=== PATIENT | female | born 1975 | race Hispanic/Latino ===

== ENCOUNTER 2017-07-29 12:00 | Emergency (ER) | payer OTHER ==
[2017-07-29 12:16] VITALS: BP 149/93
[2017-07-29 17:27] LABS: Bilirubin,Urine NEG (Negative); Blood,Urine NEG (Negative); Color,Urine Straw (Yellow); Nitrite,Urine NEG (Negative); Protein,Urine <15 mg/dL mg/dL (Negative); Urobilinogen,Urine < 2.0 mg/dL (<2.0)
[2017-07-29 17:35] LABS: HCG Qualitative,Urine Negative (Negative)
--- NOTE | 2017-07-29 17:35 | Emergency Department Report ---
ED Female HPI - General Chief complaint: Urogenital-Female Stated complaint: UROGENTELIA-FEMALE Time Seen by Provider: 07/29/17 16:41 Source: patient Mode of arrival: Ambulatory Limitations: No Limitations - History of Present Illness Initial comments: This is a 41 y.o. female with frequency, discharge with odor, and urgency. She [facility] ago and treated for UTI with macrobid 100 mg po bid x 5 days. Symptoms got better for a few days then returned 3 days ago. Admits to unprotected intercourse. Treated months ago for trichomoniasis at [facility]. Denies low back pain and abdominal pain. MD Complaint: vaginal discharge, possible STD -: days(s) (3) Location: labia Radiation: non-radiating Severity: mild Severity scale (0 -10): 0 Consistency: constant Improves with: none Worsens with: intercourse (foul odor during intercourse) Associated Symptoms: vaginal discharge (thick white discharge). denies: vaginal bleeding, abdominal pain, nausea/vomiting, fever/chills, headaches, loss of appetite, dysuria, hematuria, rash, seizure, shortness of breath, syncope, weakness - Related Data Sexually active: Yes Previous Rx's Medication Instructions Recorded Last Taken Type Ibuprofen [Motrin] 600 mg PO Q8H PRN #30 tablet 08/26/14 Unknown Rx Cephalexin [Keflex] 500 mg PO Q6H #40 capsule 08/13/15 Unknown Rx Loratadine [Claritin] 10 mg PO DAILY #30 tablet 08/13/15 Unknown Rx Promethazine /Codeine 5 ml PO Q6H PRN #150 ml 08/13/15 Unknown Rx [Phenergan/Codeine 6.25-10 mg/5 ml] predniSONE [Deltasone] 20 mg PO QDAY #5 tab 08/13/15 Unknown Rx ALBUTEROL Inhaler [ProAir HFA 2 puff IH QID PRN #1 inhalation 08/26/15 Unknown Rx Inhaler] Benzonatate [Tessalon Perles] 100 mg PO Q8HR #20 capsule 08/26/15 Unknown Rx Prednisone [predniSONE 10 mg 10 mg PO .TAPER #1 tab.ds.pk 08/26/15 Unknown Rx (6-Day Pack, 21 Tabs)] metroNIDAZOLE [Metronidazole] 500 mg PO BID 7 Days #14 tablet 07/29/17 Unknown Rx Allergies Allergy/AdvReac Type Severity Reaction Status Date / Time sulfamethoxazole AdvReac Itching Verified 11/07/13 14:16 [From Bactrim] trimethoprim [From Bactrim] AdvReac Itching Verified 11/07/13 14:16 ED Review of Systems ROS: Stated complaint: UROGENTELIA-FEMALE Other details as noted in HPI Constitutional: denies: chills, fever Respiratory: denies: cough, shortness of breath, wheezing Cardiovascular: denies: chest pain, palpitations Gastrointestinal: denies: abdominal pain, nausea, diarrhea Genitourinary: urgency, frequency, discharge. denies: dysuria Musculoskeletal: denies: back pain, joint swelling, arthralgia Neurological: denies: headache, weakness, paresthesias ED Past Medical Hx - Past Medical History Previous Medical History?: Yes Additional medical history: Frequent UTI, Heavy vaginal bleeding during menses, Bartholin cyst - Surgical History Past Surgical History?: Yes Additional Surgical History: tubal ligation, Tonsil removed - Social History Smoking Status: Never Smoker Substance Use Type: Prescribed - Medications Home Medications: Home Medications Medication Instructions Recorded Confirmed Last Taken Type Ibuprofen [Motrin] 600 mg PO Q8H PRN #30 tablet 08/26/14 Unknown Rx Cephalexin [Keflex] 500 mg PO Q6H #40 capsule 08/13/15 Unknown Rx Loratadine [Claritin] 10 mg PO DAILY #30 tablet 08/13/15 Unknown Rx Promethazine /Codeine 5 ml PO Q6H PRN #150 ml 08/13/15 Unknown Rx [Phenergan/Codeine 6.25-10 mg/5 ml] predniSONE [Deltasone] 20 mg PO QDAY #5 tab 08/13/15 Unknown Rx ALBUTEROL Inhaler [ProAir HFA 2 puff IH QID PRN #1 inhalation 08/26/15 Unknown Rx Inhaler] Benzonatate [Tessalon Perles] 100 mg PO Q8HR #20 capsule 08/26/15 Unknown Rx Prednisone [predniSONE 10 mg 10 mg PO .TAPER #1 tab.ds.pk 08/26/15 Unknown Rx (6-Day Pack, 21 Tabs)] metroNIDAZOLE [Metronidazole] 500 mg PO BID 7 Days #14 tablet 07/29/17 Unknown Rx ED Physical Exam - General Limitations: No Limitations General appearance: alert, in no apparent distress - Respiratory Respiratory exam: Present: normal lung sounds bilaterally. Absent: respiratory distress - Cardiovascular Cardiovascular Exam: Present: regular rate, normal rhythm. Absent: systolic murmur, diastolic murmur, rubs, gallop - GI/Abdominal GI/Abdominal exam: Present: soft, normal bowel sounds - Back Exam Back exam: Present: normal inspection - Neurological Exam Neurological exam: Present: alert, oriented X3 ED Course Vital Signs 07/29/17 12:11 Temperature 97.9 F Pulse Rate 109 H Respiratory 20 Rate Blood Pressure 149/93 O2 Sat by Pulse 97 Oximetry Critical care attestation.: If time is entered above; I have spent that time in minutes in the direct care of this critically ill patient, excluding procedure time. ED Disposition Clinical Impression: Exposure to STD Disposition: DC-01 TO HOME OR SELFCARE Is pt being admited?: No Does the pt Need Aspirin: No Condition: Stable Instructions: Sexually Transmitted Diseases (ED), Safe Sex (ED) Additional Instructions: Follow up with health department for full screening. Complete prescribed medication as ordered. Prescriptions: metroNIDAZOLE [Metronidazole] 500 mg PO BID 7 Days #14 tablet Referrals: PRIMARY CARE, [Primary Care Provider] - 3-5 Days [facility] [Outside] - 3-5 Days [facility] [Outside] - 3-5 Days [facility] [Outside] - 3-5 Days Forms: Work/School Release Form(ED) Time of Disposition: 17:58 Print Language: BERMUDIAN
[2017-07-29] MEDS ORDERED: ROCEPHIN IM ONE (17:42)
[2017-07-29] MEDS ORDERED: XYLOCAINE 1% MPF 5 mL INFILTRATI ONE (17:42)
[2017-07-29] MEDS ORDERED: ZITHROMAX PO ONE (17:42)
== END 2017-07-29 18:16 | disposition home or self-care (01) ==
LOC: ED 12:00
DX: Z20.2 Contact with and (suspected) exposure to infections with a predominantly sexual mode of transmission (principal); Z88.1 Allergy status to other antibiotic agents; Z88.2 Allergy status to sulfonamides
CPT/HCPCS: 81001; 81025; 96372; 99283; J0696

== ENCOUNTER 2018-11-30 15:40 | Emergency (ER) | payer OTHER ==
--- NOTE | 2018-11-30 16:09 | Emergency Department Report ---
Blank Doc - Documentation Documentation: This is a 42-year-old female that presents with n/v and cough x2 weeks. This initial assessment/diagnostic orders/clinical plan/treatment(s) is/are subject to change based on patient's health status, clinical progression and re- assessment by fellow clinical providers in the ED. Further treatment and workup at subsequent clinical providers discretion. Patient/guardians urged not to elope from the ED as their condition may be serious if not clinically assessed and managed. Initial orders include: 1- Patient sent to [facility] for further evaluation and treatment 2- labs 3- CXR/Abd xray
[2018-11-30 18:02] LABS: Basophils % (Auto) 0.4 % (0.0-1.8); Eosinophils # (Auto) 0.1 K/mm3 (0.0-0.4); Hematocrit 39.8 % (30.3-42.9); Hemoglobin 13.4 gm/dl (10.1-14.3); Lymphocytes # (Auto) 3.7 K/mm3 (1.2-5.4); Lymphocytes % (Auto) 39.5 % (13.4-35.0); Mean Corpuscular HGB Conc 34 % (30-34); Mean Corpuscular Volume 85 fl (79-97); Monocytes # (Auto) 0.7 K/mm3 (0.0-0.8); Monocytes % (Auto) 7.9 % (0.0-7.3); Platelet Count 307 K/mm3 (140-440); Red Blood Count 4.67 M/mm3 (3.65-5.03); Red Cell Distribution Width 13.8 % (13.2-15.2)
--- NOTE | 2018-11-30 18:09 | XRay Report ---
PROCEDURE: XR ABD SERIES W CXR 1V TECHNIQUE: Abdominal series complete, including supine and upright AP views of the abdomen and front al chest. HISTORY: n/v with cough COMPARISONS: None . FINDINGS: Heart: Normal. Mediastinum/Vessels: Normal. Lungs/Pleural space: Normal. Bowel gas pattern: Bowel gas pattern is nonobstructive. There are air-fluid levels in the colon. . Calcifications: None . Bony structures: No acute osseous abnormality . Other: No free intraperitoneal air . IMPRESSION: Nonobstructive bowel gas pattern. This document is electronically signed by Maxine Jorgensen MD., Nov 30 2018 06:07:11 PM ET
[2018-11-30] MEDS ORDERED: ALUM-MAG HYDROX-SIMETH 200-200-20MG/5ML PO ONE (18:12)
[2018-11-30] MEDS ORDERED: LIDOCAINE VISCOUS 2% PO ONE (18:12)
[2018-11-30] MEDS ORDERED: BENTYL PO ONE (18:16)
[2018-11-30 18:26] LABS: Alanine Aminotransferase 31 units/L (7-56); Albumin 4.3 g/dL (3.9-5); BUN/Creatinine Ratio 25; Blood Urea Nitrogen 15 mg/dL (7-17); Calcium 9.3 mg/dL (8.4-10.2); Hemolysis Index 15
[2018-11-30 18:31] LABS: Bilirubin,Direct < 0.2 mg/dL (0-0.2)
--- NOTE | 2018-11-30 18:43 | Emergency Department Report ---
ED General Adult HPI - General Chief complaint: Nausea/Vomiting/Diarrhea Stated complaint: SICK Time Seen by Provider: 11/30/18 16:08 Source: patient Mode of arrival: Ambulatory Limitations: No Limitations - History of Present Illness Initial comments: Pt is a 42 yo female who presents to the ED with c/o N/V/D that began 1 week and a half ago. She states she also has a cough with mucus production and fatigue. The patient states she is also having urinary urgency. She denies any fever, dysuria, hematochezia, abd pain, hematemesis, melena, or any other sx. She states that her nausea and cough is worse with laying flat. She denies any PMHx or any daily meds. She states she is allergic to bactrim. The patient is a non smoker, non drinker, and denies drug use. Severity scale (0 -10): 0 - Related Data Previous Rx's Medication Instructions Recorded Last Taken Type Ibuprofen [Motrin 600 MG tab] 600 mg PO Q8H PRN #30 tablet 08/26/14 Unknown Rx Loratadine [Claritin] 10 mg PO DAILY #30 tablet 08/13/15 Unknown Rx ALBUTEROL Inhaler (OR & NICU) 2 puff IH QID PRN #1 inhalation 08/26/15 Unknown Rx [ProAir HFA Inhaler] Benzonatate [Tessalon Perles] 100 mg PO Q8HR #20 capsule 11/30/18 Unknown Rx Famotidine [Pepcid] 20 mg PO DAILY #30 tablet 11/30/18 Unknown Rx Ondansetron [Zofran Odt] 4 mg PO Q8HR PRN #10 tab.rapdis 11/30/18 Unknown Rx Prednisone [predniSONE 10 mg 10 mg PO .TAPER #1 tab.ds.pk 11/30/18 Unknown Rx (6-Day Pack, 21 Tabs)] guaiFENesin [Mucinex] 600 mg PO BID #20 tab.er.12h 11/30/18 Unknown Rx Allergies Allergy/AdvReac Type Severity Reaction Status Date / Time sulfamethoxazole AdvReac Itching Verified 11/30/18 16:04 [From Bactrim] trimethoprim [From Bactrim] AdvReac Itching Verified 11/30/18 16:04 ED Review of Systems ROS: Stated complaint: SICK Other details as noted in HPI Comment: All other systems reviewed and negative ED Past Medical Hx - Past Medical History Additional medical history: Frequent UTI, Heavy vaginal bleeding during menses, Bartholin cyst - Surgical History Additional Surgical History: tubal ligation, Tonsil removed - Social History Smoking Status: Never Smoker Substance Use Type: None - Medications Home Medications: Home Medications Medication Instructions Recorded Confirmed Last Taken Type Ibuprofen [Motrin 600 MG tab] 600 mg PO Q8H PRN #30 tablet 08/26/14 Unknown Rx Loratadine [Claritin] 10 mg PO DAILY #30 tablet 08/13/15 Unknown Rx ALBUTEROL Inhaler (OR & NICU) 2 puff IH QID PRN #1 inhalation 08/26/15 Unknown Rx [ProAir HFA Inhaler] Benzonatate [Tessalon Perles] 100 mg PO Q8HR #20 capsule 11/30/18 Unknown Rx Famotidine [Pepcid] 20 mg PO DAILY #30 tablet 11/30/18 Unknown Rx Ondansetron [Zofran Odt] 4 mg PO Q8HR PRN #10 tab.rapdis 11/30/18 Unknown Rx Prednisone [predniSONE 10 mg 10 mg PO .TAPER #1 tab.ds.pk 11/30/18 Unknown Rx (6-Day Pack, 21 Tabs)] guaiFENesin [Mucinex] 600 mg PO BID #20 tab.er.12h 11/30/18 Unknown Rx ED Physical Exam - General Limitations: No Limitations General appearance: alert, in no apparent distress - Head Head exam: Present: atraumatic, normocephalic - Eye Eye exam: Present: normal appearance - ENT ENT exam: Present: mucous membranes moist - Respiratory Respiratory exam: Present: other (audible congestion). Absent: respiratory distress, wheezes, rales, stridor, chest wall tenderness, accessory muscle use, decreased breath sounds, prolonged expiratory - Cardiovascular Cardiovascular Exam: Present: regular rate, normal rhythm, normal heart sounds. Absent: systolic murmur, diastolic murmur, rubs, gallop - GI/Abdominal GI/Abdominal exam: Present: soft, normal bowel sounds. Absent: distended, tenderness, guarding, rebound, rigid - Neurological Exam Neurological exam: Present: alert, oriented X3 - Psychiatric Psychiatric exam: Present: normal affect, normal mood - Skin Skin exam: Present: warm, dry, intact ED Course Vital Signs 11/30/18 11/30/18 16:00 18:59 Temperature 98.3 F Pulse Rate 93 H 86 Respiratory 18 20 Rate Blood Pressure 156/103 152/76 [Left] O2 Sat by Pulse 98 99 Oximetry ED Medical Decision Making - Lab Data Result diagrams: 11/30/18 17:30 11/30/18 17:30 Lab Results 11/30/18 11/30/18 11/30/18 Range/Units 17:30 17:30 17:30 WBC 9.3 (4.5-11.0) K/mm3 RBC 4.67 (3.65-5.03) M/mm3 Hgb 13.4 (10.1-14.3) gm/dl Hct 39.8 (30.3-42.9) % MCV 85 (79-97) fl MCH 29 (28-32) pg MCHC 34 (30-34) % RDW 13.8 (13.2-15.2) % Plt Count 307 (140-440) K/mm3 Lymph % (Auto) 39.5 H (13.4-35.0) % Rice % (Auto) 7.9 H (0.0-7.3) % Eos % (Auto) 1.0 (0.0-4.3) % Baso % (Auto) 0.4 (0.0-1.8) % Lymph # 3.7 (1.2-5.4) K/mm3 Rice # 0.7 (0.0-0.8) K/mm3 Eos # 0.1 (0.0-0.4) K/mm3 Baso # 0.0 (0.0-0.1) K/mm3 Seg Neutrophils % 51.2 (40.0-70.0) % Seg Neutrophils # 4.8 (1.8-7.7) K/mm3 Sodium 139 (137-145) mmol/L Potassium 3.7 (3.6-5.0) mmol/L Chloride 102.5 (98-107) mmol/L Carbon Dioxide 24 (22-30) mmol/L Anion Gap 16 mmol/L BUN 15 (7-17) mg/dL Creatinine 0.6 L (0.7-1.2) mg/dL Estimated GFR > 60 ml/min BUN/Creatinine Ratio 25 % Glucose 89 (65-100) mg/dL Calcium 9.3 (8.4-10.2) mg/dL Total Bilirubin < 0.20 (0.1-1.2) mg/dL Direct Bilirubin < 0.2 (0-0.2) mg/dL Indirect Bilirubin 0.0 mg/dL AST 19 (5-40) units/L ALT 31 (7-56) units/L Alkaline Phosphatase 81 (35-129) units/L Total Protein 7.3 (6.3-8.2) g/dL Albumin 4.3 (3.9-5) g/dL Albumin/Globulin Ratio 1.4 % Lipase 52 (13-60) units/L HCG, Qual Negative (Negative) Urine Color (Yellow) Urine Turbidity (Clear) Urine pH (5.0-7.0) Ur Specific Drew (1.003-1.030) Urine Protein (Negative) mg/dL Urine Glucose (UA) (Negative) mg/dL Urine Ketones (Negative) mg/dL Urine Blood (Negative) Urine Nitrite (Negative) Urine Bilirubin (Negative) Urine Urobilinogen (<2.0) mg/dL Ur Leukocyte Esterase (Negative) Urine WBC (Auto) (0.0-6.0) /HPF Urine RBC (Auto) (0.0-6.0) /HPF U Epithel Cells (Auto) (0-13.0) /HPF Urine Bacteria (Auto) (Negative) /HPF Urine Mucus /HPF 11/30/18 Range/Units 18:30 WBC (4.5-11.0) K/mm3 RBC (3.65-5.03) M/mm3 Hgb (10.1-14.3) gm/dl Hct (30.3-42.9) % MCV (79-97) fl MCH (28-32) pg MCHC (30-34) % RDW (13.2-15.2) % Plt Count (140-440) K/mm3 Lymph % (Auto) (13.4-35.0) % Rice % (Auto) (0.0-7.3) % Eos % (Auto) (0.0-4.3) % Baso % (Auto) (0.0-1.8) % Lymph # (1.2-5.4) K/mm3 Rice # (0.0-0.8) K/mm3 Eos # (0.0-0.4) K/mm3 Baso # (0.0-0.1) K/mm3 Seg Neutrophils % (40.0-70.0) % Seg Neutrophils # (1.8-7.7) K/mm3 Sodium (137-145) mmol/L Potassium (3.6-5.0) mmol/L Chloride (98-107) mmol/L Carbon Dioxide (22-30) mmol/L Anion Gap mmol/L BUN (7-17) mg/dL Creatinine (0.7-1.2) mg/dL Estimated GFR ml/min BUN/Creatinine Ratio % Glucose (65-100) mg/dL Calcium (8.4-10.2) mg/dL Total Bilirubin (0.1-1.2) mg/dL Direct Bilirubin (0-0.2) mg/dL Indirect Bilirubin mg/dL AST (5-40) units/L ALT (7-56) units/L Alkaline Phosphatase (35-129) units/L Total Protein (6.3-8.2) g/dL Albumin (3.9-5) g/dL Albumin/Globulin Ratio % Lipase (13-60) units/L HCG, Qual (Negative) Urine Color Yellow (Yellow) Urine Turbidity Clear (Clear) Urine pH 7.0 (5.0-7.0) Ur Specific Drew 1.013 (1.003-1.030) Urine Protein <15 mg/dl (Negative) mg/dL Urine Glucose (UA) Neg (Negative) mg/dL Urine Ketones Neg (Negative) mg/dL Urine Blood Neg (Negative) Urine Nitrite Neg (Negative) Urine Bilirubin Neg (Negative) Urine Urobilinogen < 2.0 (<2.0) mg/dL Ur Leukocyte Esterase Tr (Negative) Urine WBC (Auto) 1.0 (0.0-6.0) /HPF Urine RBC (Auto) 3.0 (0.0-6.0) /HPF U Epithel Cells (Auto) 3.0 (0-13.0) /HPF Urine Bacteria (Auto) 2+ (Negative) /HPF Urine Mucus Few /HPF Vital Signs 11/30/18 11/30/18 16:00 18:59 Temperature 98.3 F Pulse Rate 93 H 86 Respiratory 18 20 Rate Blood Pressure 156/103 152/76 [Left] O2 Sat by Pulse 98 99 Oximetry - Radiology Data Radiology results: report reviewed PROCEDURE: XR ABD SERIES W CXR 1V TECHNIQUE: Abdominal series complete, including supine and upright AP views of the abdomen and frontal chest. HISTORY: n/v with cough COMPARISONS: None . FINDINGS: Heart: Normal. Mediastinum/Vessels: Normal. Lungs/Pleural space: Normal. Bowel gas pattern: Bowel gas pattern is nonobstructive. There are air-fluid levels in the colon. . Calcifications: None . Bony structures: No acute osseous abnormality . Other: No free intraperitoneal air . IMPRESSION: Nonobstructive bowel gas pattern. This document is electronically signed by Maxine Jorgensen MD., Nov 30 2018 06:07:11 PM ET - Medical Decision Making Pt is a 42 yo female who presents to the ED with c/o N/V/D that began 1 week and a half ago. She states she also has a cough with mucus production and fatigue. The patient states she is also having urinary urgency. She denies any fever, dysuria, hematochezia, abd pain, hematemesis, melena, or any other sx. She states that her nausea and cough is worse with laying flat. She denies any PMHx or any daily meds. She states she is allergic to bactrim. The patient is a non smoker, non drinker, and denies drug use. CXR is normal. labs WNL. UA is normal. Pt given zofran for nausea/vomiting. Pt tolerating PO intake in the ED with no difficulty. Pt given pepcid for acid reflux sx. Pt given prescriptions for viral URI sx. pt is afebrile, oxygen saturation is normal. BP is elevated, repeat improved, advised to discuss with her PCP. Advised pt to follow up with PCP in the next 2-3 days. Take medication as prescribed. Return to the ED for any new or worsening symptoms. Critical care attestation.: If time is entered above; I have spent that time in minutes in the direct care of this critically ill patient, excluding procedure time. ED Disposition Clinical Impression: Nausea vomiting and diarrhea URI (upper respiratory infection) Qualifiers: URI type: unspecified URI Qualified Code(s): J06.9 - Acute upper respiratory in fection, unspecified GERD (gastroesophageal reflux disease) Qualifiers: Esophagitis presence: esophagitis presence not specified Qualified Code(s): K21.9 - Gastro-esophageal reflux disease without esophagitis Disposition: TO HOME OR SELFCARE Is pt being admited?: No Does the pt Need Aspirin: No Condition: Stable Instructions: Diet for Ulcers and Gastritis (ED), Upper Respiratory Infection (ED), Gastroesophageal Reflux Disease (ED), Acute Nausea and Vomiting (ED) Additional Instructions: Please take medication as prescribed. Please follow up with a primary care doctor in the next 2-3 days. Please follow the diet for acid reflux. Return to the emergency room for any new or worsening symptoms. Prescriptions: guaiFENesin [Mucinex] 600 mg PO BID #20 tab.er.12h Famotidine [Pepcid] 20 mg PO DAILY #30 tablet Prednisone [predniSONE 10 mg (6-Day Pack, 21 Tabs)] 10 mg PO .TAPER #1 tab.ds.pk Benzonatate [Tessalon Perles] 100 mg PO Q8HR #20 capsule Ondansetron [Zofran Odt] 4 mg PO Q8HR PRN #10 tab.rapdis PRN Reason: Nausea And Vomiting Referrals: [place] [facility] [Primary Care Provider] - 2-3 Days Time of Disposition: 19:22 Print Language: HEBREW
[2018-11-30 18:45] LABS: Bacteria,Urine 2+ /HPF (Negative); Bilirubin,Urine NEG (Negative); Blood,Urine NEG (Negative); Color,Urine Yellow (Yellow); Mucus,Urine FEW /HPF; Protein,Urine <15 mg/dL mg/dL (Negative); Urobilinogen,Urine < 2.0 mg/dL (<2.0)
[2018-11-30] MEDS ORDERED: ZOFRAN ODT PO ONE (18:56)
[2018-11-30] MEDS ORDERED: ZOFRAN ODT ONE (18:59)
[2018-11-30 19:00] VITALS: BP 152/76
== END 2018-11-30 19:30 | disposition home or self-care (01) ==
LOC: ED 15:40
DX: R11.2 Nausea with vomiting, unspecified (principal); R19.7 Diarrhea, unspecified; J06.9 Acute upper respiratory infection, unspecified; K21.9 Gastro-esophageal reflux disease without esophagitis
CPT/HCPCS: 36415; 74022; 80048; 80076; 81001; 83690; 84703; 85025; Q0162

== ENCOUNTER 2019-05-15 04:30 | Emergency (ER) | payer SELFPAY ==
[2019-05-15 05:12] VITALS: BP 145/81
[2019-05-15 05:29] LABS: Bilirubin,Urine NEG (Negative); Blood,Urine NEG (Negative); Color,Urine Colorless (Yellow); Hyaline Casts,Urine 1 /LPF; Protein,Urine <15 mg/dL mg/dL (Negative); RBC,Urine < 1.0 /HPF (0.0-6.0); Urobilinogen,Urine < 2.0 mg/dL (<2.0)
[2019-05-15 05:30] LABS: HCG Qualitative,Urine Negative (Negative); WBC,Urine < 1.0 /HPF (0.0-6.0)
--- NOTE | 2019-05-15 08:12 | Emergency Department Report ---
ED Female HPI - General Chief complaint: Urogenital-Female Stated complaint: FREQUENT URINATION Time Seen by Provider: 05/15/19 07:46 Source: patient Mode of arrival: Ambulatory Limitations: No Limitations - History of Present Illness Initial comments: Patient is a 43-year-old presents emergency room with complaints of urinary urgency and frequency for the last 4 days. She also has a thick white vaginal discharge and vaginal itching. She denies any dysuria, nausea, vomiting, abdominal pain, any other symptoms. She states that she is currently on amoxicillin for an abscessed tooth. she states that she frequently gets yeast infections after having antibiotics. She has sexually active. Denies any concerns for STDs. - Related Data Previous Rx's Medication Instructions Recorded Last Taken Type Ibuprofen [Motrin 600 MG tab] 600 mg PO Q8H PRN #30 tablet 08/26/14 Unknown Rx Loratadine [Claritin] 10 mg PO DAILY #30 tablet 08/13/15 Unknown Rx ALBUTEROL Inhaler (OR & NICU) 2 puff IH QID PRN #1 inhalation 08/26/15 Unknown Rx [ProAir HFA Inhaler] Benzonatate [Tessalon Perles] 100 mg PO Q8HR #20 capsule 11/30/18 Unknown Rx Famotidine [Pepcid] 20 mg PO DAILY #30 tablet 11/30/18 Unknown Rx Ondansetron [Zofran Odt] 4 mg PO Q8HR PRN #10 tab.rapdis 11/30/18 Unknown Rx Prednisone [predniSONE 10 mg 10 mg PO .TAPER #1 tab.ds.pk 11/30/18 Unknown Rx (6-Day Pack, 21 Tabs)] guaiFENesin [Mucinex] 600 mg PO BID #20 tab.er.12h 11/30/18 Unknown Rx Fluconazole [Diflucan TAB] 150 mg PO ONCE #1 tablet 05/15/19 Unknown Rx Allergies Allergy/AdvReac Type Severity Reaction Status Date / Time sulfamethoxazole AdvReac Itching Verified 11/30/18 16:04 [From Bactrim] trimethoprim [From Bactrim] AdvReac Itching Verified 11/30/18 16:04 ED Review of Systems ROS: Stated complaint: FREQUENT URINATION Other details as noted in HPI Comment: All other systems reviewed and negative ED Past Medical Hx - Past Medical History Previous Medical History?: No Additional medical history: Frequent UTI, Heavy vaginal bleeding during menses, Bartholin cyst - Surgical History Past Surgical History?: Yes Additional Surgical History: tubal ligation, Tonsil removed - Social History Smoking Status: Never Smoker Substance Use Type: None - Medications Home Medications: Home Medications Medication Instructions Recorded Confirmed Last Taken Type Ibuprofen [Motrin 600 MG tab] 600 mg PO Q8H PRN #30 tablet 08/26/14 Unknown Rx Loratadine [Claritin] 10 mg PO DAILY #30 tablet 08/13/15 Unknown Rx ALBUTEROL Inhaler (OR & NICU) 2 puff IH QID PRN #1 inhalation 08/26/15 Unknown Rx [ProAir HFA Inhaler] Benzonatate [Tessalon Perles] 100 mg PO Q8HR #20 capsule 11/30/18 Unknown Rx Famotidine [Pepcid] 20 mg PO DAILY #30 tablet 11/30/18 Unknown Rx Ondansetron [Zofran Odt] 4 mg PO Q8HR PRN #10 tab.rapdis 11/30/18 Unknown Rx Prednisone [predniSONE 10 mg 10 mg PO .TAPER #1 tab.ds.pk 11/30/18 Unknown Rx (6-Day Pack, 21 Tabs)] guaiFENesin [Mucinex] 600 mg PO BID #20 tab.er.12h 11/30/18 Unknown Rx Fluconazole [Diflucan TAB] 150 mg PO ONCE #1 tablet 05/15/19 Unknown Rx ED Physical Exam - General Limitations: No Limitations General appearance: alert, in no apparent distress - Head Head exam: Present: atraumatic, normocephalic - Eye Eye exam: Present: normal appearance - ENT ENT exam: Present: mucous membranes moist - Respiratory Respiratory exam: Present: normal lung sounds bilaterally. Absent: respiratory distress, wheezes, rales, rhonchi, stridor, chest wall tenderness, accessory muscle use, decreased breath sounds, prolonged expiratory - Cardiovascular Cardiovascular Exam: Present: regular rate, normal rhythm, normal heart sounds. Absent: systolic murmur, diastolic murmur, rubs, gallop - GI/Abdominal GI/Abdominal exam: Present: soft, normal bowel sounds. Absent: distended, tenderness, guarding, rebound, rigid - External exam: Present: other (pt deferred) - Neurological Exam Neurological exam: Present: alert, oriented X3 - Psychiatric Psychiatric exam: Present: normal affect, normal mood - Skin Skin exam: Present: warm, dry, intact ED Course Vital Signs 05/15/19 05/15/19 05:11 08:54 Temperature 98.0 F 98.0 F Pulse Rate 87 87 Respiratory 16 16 Rate Blood Pressure 145/81 O2 Sat by Pulse 99 99 Oximetry ED Medical Decision Making - Lab Data Lab Results 05/15/19 Range/Units 05:12 Urine Color Colorless (Yellow) Urine Turbidity Clear (Clear) Urine pH 6.0 (5.0-7.0) Ur Specific [place] 1.002 L (1.003-1.030) Urine Protein <15 mg/dl (Negative) mg/dL Urine Glucose (UA) Neg (Negative) mg/dL Urine Ketones Neg (Negative) mg/dL Urine Blood Neg (Negative) Urine Nitrite Neg (Negative) Urine Bilirubin Neg (Negative) Urine Urobilinogen < 2.0 (<2.0) mg/dL Ur Leukocyte Esterase Neg (Negative) Urine WBC (Auto) < 1.0 (0.0-6.0) /HPF Urine RBC (Auto) < 1.0 (0.0-6.0) /HPF Hyaline Casts 1 /LPF Urine HCG, Qual Negative (Negative) - Medical Decision Making Patient is a 43-year-old presents emergency room with complaints of urinary urgency and frequency for the last 4 days. She also has a thick white vaginal discharge and vaginal itching. She denies any dysuria, nausea, vomiting, abdominal pain, any other symptoms. She states that she is currently on amoxicillin for an abscessed tooth. she states that she frequently gets yeast infections after having antibiotics. She has sexually active. Denies any co ncerns for STDs. vitals are normal. UA without evidence of UTI. pts symptoms most likely related to vulvovaginal candidiasis infection given history of recent abx use. discussed with pt to follow up with [facility] for further examination and evaluation. pt given prescription for fluconazole with one refill. advised pt to please take medication as prescribed. If still experiencing symptoms may repeat medication in 3 days. please follow-up with her [facility] in the next 2-3 days for further examination. Return to the emergency room for any new or worsening symptoms. Critical care attestation.: If time is entered above; I have spent that time in minutes in the direct care of this critically ill patient, excluding procedure time. ED Disposition Clinical Impression: Vulvovaginal candidiasis, Urinary frequency Disposition: - TO HOME OR SELFCARE Is pt being admited?: No Does the pt Need Aspirin: No Condition: Stable Instructions: Vulvovaginal Candidiasis (ED) Additional Instructions: Please take medication as prescribed. If still experiencing symptoms may repeat medication in 3 days. please follow-up with her [facility] in the next 2-3 days for further examination. Return to the emergency room for any new or worsening symptoms. Prescriptions: Fluconazole [Diflucan TAB] 150 mg PO ONCE #1 tablet Referrals: [facility] [Provider Group] - 2-3 Days [facility] [Provider Group] - 2-3 Days [facility] [Provider Group] - 2-3 Days [facility] [Provider Group] - 2-3 Days Time of Disposition: 08:10 Print Language: SERBIAN
== END 2019-05-15 08:54 | disposition home or self-care (01) ==
LOC: ED 04:30
DX: B37.3 Candidiasis of vulva and vagina (principal); R35.0 Frequency of micturition; Z98.51 Tubal ligation status; Z90.89 Acquired absence of other organs; Z79.899 Other long term (current) drug therapy; Z88.8 Allergy status to other drugs, medicaments and biological substances
CPT/HCPCS: 81001; 81025

== ENCOUNTER 2019-05-18 09:26 | Emergency (ER) | payer OTHER ==
[2019-05-18 09:32] VITALS: BP 155/94
--- NOTE | 2019-05-18 09:54 | Emergency Department Report ---
ED Female HPI - General Chief complaint: Urogenital-Female Stated complaint: COUGH/CLOGGED NOSE/URINE RAMIREZ Time Seen by Provider: 05/18/19 09:51 Source: patient Mode of arrival: Ambulatory Limitations: No Limitations - History of Present Illness Initial comments: This is a 43-year-old female who presents to the emergency room with urgency, vaginal discharge, and dysuria for one week. Last menstrual period was 05/01/2019. She reports a history of recurrent urinary tract infections. States sexual intercourse with one male partner. Patient states she is taking [id number] medication with minimal improvement of symptoms. Patient states she was treated last week for yeast infection. States symptoms are worsening from last week. She denies hematuria, back pain, fever, or chills. MD Complaint: vaginal discharge, dysuria, pelvic pain Onset/Timin -: week(s) Location: suprapubic Radiation: non-radiating Severity: mild Severity scale (0 -10): 3 Quality: other (pressure) Consistency: intermittent Improves with: urination Worsens with: urination Are you Now?: No Last Menstrual Period: 05/01/19 EDC: 02/05/20 Associated Symptoms: vaginal discharge, abdominal pain, dysuria. denies: vaginal bleeding, nausea/vomiting, fever/chills, loss of appetite, hematuria, rash, seizure - Related Data Sexually active: Yes Previous Rx's Medication Instructions Recorded Last Taken Type Ibuprofen [Motrin 600 MG tab] 600 mg PO Q8H PRN #30 tablet 08/26/14 Unknown Rx Loratadine [Claritin] 10 mg PO DAILY #30 tablet 08/13/15 Unknown Rx ALBUTEROL Inhaler (OR & NICU) 2 puff IH QID PRN #1 inhalation 08/26/15 Unknown Rx [ProAir HFA Inhaler] Benzonatate [Tessalon Perles] 100 mg PO Q8HR #20 capsule 11/30/18 Unknown Rx Famotidine [Pepcid] 20 mg PO DAILY #30 tablet 11/30/18 Unknown Rx Ondansetron [Zofran Odt] 4 mg PO Q8HR PRN #10 tab.rapdis 11/30/18 Unknown Rx Prednisone [predniSONE 10 mg 10 mg PO .TAPER #1 tab.ds.pk 11/30/18 Unknown Rx (6-Day Pack, 21 Tabs)] guaiFENesin [Mucinex] 600 mg PO BID #20 tab.er.12h 11/30/18 Unknown Rx Fluconazole [Diflucan TAB] 150 mg PO ONCE #1 tablet 05/15/19 Unknown Rx Fluconazole [Diflucan TAB] 150 mg PO DAILY #2 tablet 05/18/19 Unknown Rx metroNIDAZOLE [Flagyl TAB] 500 mg PO Q12HR #14 tab 05/18/19 Unknown Rx Allergies Allergy/AdvReac Type Severity Reaction Status Date / Time sulfamethoxazole AdvReac Itching Verified 11/30/18 16:04 [From Bactrim] trimethoprim [From Bactrim] AdvReac Itching Verified 11/30/18 16:04 ED Review of Systems ROS: Stated complaint: COUGH/CLOGGED NOSE/URINE RAMIREZ Other details as noted in HPI Constitutional: denies: chills, fever Respiratory: denies: cough, shortness of breath, wheezing Cardiovascular: denies: chest pain, palpitations Gastrointestinal: abdominal pain. denies: nausea, diarrhea Genitourinary: dysuria, discharge. denies: urgency Musculoskeletal: denies: back pain, joint swelling, arthralgia Skin: denies: rash, lesions Neurological: denies: headache, weakness, paresthesias Psychiatric: denies: anxiety, depression ED Past Medical Hx - Past Medical History Previous Medical History?: No Additional medical history: Frequent UTI, Heavy vaginal bleeding during menses, Bartholin cyst - Surgical History Past Surgical History?: Yes Additional Surgical History: tubal ligation,. tonsilectomy - Social History Smoking Status: Never Smoker Substance Use Type: None - Medications Home Medications: Home Medications Medication Instructions Recorded Confirmed Last Taken Type Ibuprofen [Motrin 600 MG tab] 600 mg PO Q8H PRN #30 tablet 08/26/14 Unknown Rx Loratadine [Claritin] 10 mg PO DAILY #30 tablet 08/13/15 Unknown Rx ALBUTEROL Inhaler (OR & NICU) 2 puff IH QID PRN #1 inhalation 08/26/15 Unknown Rx [ProAir HFA Inhaler] Benzonatate [Tessalon Perles] 100 mg PO Q8HR #20 capsule 11/30/18 Unknown Rx Famotidine [Pepcid] 20 mg PO DAILY #30 tablet 11/30/18 Unknown Rx Ondansetron [Zofran Odt] 4 mg PO Q8HR PRN #10 tab.rapdis 11/30/18 Unknown Rx Prednisone [predniSONE 10 mg 10 mg PO .TAPER #1 tab.ds.pk 11/30/18 Unknown Rx (6-Day Pack, 21 Tabs)] guaiFENesin [Mucinex] 600 mg PO BID #20 tab.er.12h 11/30/18 Unknown Rx Fluconazole [Diflucan TAB] 150 mg PO ONCE #1 tablet 05/15/19 Unknown Rx Fluconazole [Diflucan TAB] 150 mg PO DAILY #2 tablet 05/18/19 Unknown Rx metroNIDAZOLE [Flagyl TAB] 500 mg PO Q12HR #14 tab 05/18/19 Unknown Rx ED Physical Exam - General Limitations: No Limitations General appearance: alert, in no apparent distress - Respiratory Respiratory exam: Present: normal lung sounds bilaterally. Absent: respiratory distress - Cardiovascular Cardiovascular Exam: Present: regular rate, normal rhythm. Absent: systolic murmur, diastolic murmur, rubs, gallop - GI/Abdominal GI/Abdominal exam: Present: soft, normal bowel sounds. Absent: distended, tenderness, guarding, rebound, rigid, organomegaly - External exam: Present: normal external exam Speculum exam: Present: vaginal discharge (malodorous curdy white). Absent: erythema, cervical discharge, vaginal bleeding, foreign body, tissue, laceration Bi-manual exam: Present: normal bi-manual exam - Back Exam Back exam: Absent: CVA tenderness (R), CVA tenderness (L) - Neurological Exam Neurological exam: Present: alert, oriented X3 - Psychiatric Psychiatric exam: Present: normal affect, normal mood - Skin Skin exam: Present: warm, dry, intact, normal color. Absent: rash ED Course Vital Signs 05/18/19 05/18/19 09:31 10:06 Temperature 98.3 F Pulse Rate 86 Respiratory 18 16 Rate Blood Pressure 155/94 O2 Sat by Pulse 99 Oximetry ED Medical Decision Making - Lab Data Lab Results 05/18/19 Range/Units 09:42 Urine Color Yellow (Yellow) Urine Turbidity Slightly-cloudy (Clear) Urine pH 6.0 (5.0-7.0) Ur Specific [place] 1.013 (1.003-1.030) Urine Protein <15 mg/dl (Negative) mg/dL Urine Glucose (UA) Neg (Negative) mg/dL Urine Ketones Neg (Negative) mg/dL Urine Blood Lg (Negative) Urine Nitrite Neg (Negative) Ur Reducing Substances Not Reportable Urine Bilirubin Neg (Negative) Urine Ictotest Not Reportable Urine Urobilinogen < 2.0 (<2.0) mg/dL Ur Leukocyte Esterase Neg (Negative) Urine WBC (Auto) 4.0 (0.0-6.0) /HPF Urine RBC (Auto) > 182.0 (0.0-6.0) /HPF U Epithel Cells (Auto) 8.0 (0-13.0) /HPF Urine Bacteria (Auto) 1+ (Negative) /HPF Urine HCG, Qual Negative (Negative) - Medical Decision Making Patient was examined by me. Vitals are stable and in no acute distress. Obtained urinalysis, wet prep, gonorrhea and chlamydia via pelvic exam. A UA negative for urinary tract infection. Wet prep positive for clue cells and yeast, negative Trichomonas. Start metronidazole and diflucan. Discharged home in stable condition. Discussed prevention options. F/U with PCP or Health Department. Critical care attestation.: If time is entered above; I have spent that time in minutes in the direct care of this critically ill patient, excluding procedure time. ED Disposition Clinical Impression: Acute cervicitis, Bacterial vaginitis, Vulvovaginal candidiasis Disposition: TO HOME OR SELFCARE Is pt being admited?: No Condition: Stable Instructions: Cervicitis (ED), Bacterial Vaginosis (ED) Additional Instructions: Avoid drinking alcohol while taking antibiotics and for 24 hours after completion. Continue safe sexual intercourse. Follow up with Primary Care Provider or health department. Prescriptions: Fluconazole [Diflucan TAB] 150 mg PO DAILY #2 tablet metroNIDAZOLE [Flagyl TAB] 500 mg PO Q12HR #14 tab Referrals: [facility] [place] [Outside] - 3-5 Days [facility] [Outside] - 3-5 Days [facility] [Outside] - 3-5 Days Forms: STI Treatment and Prevention Time of Disposition: 11:31
[2019-05-18 10:01] LABS: HCG Qualitative,Urine Negative (Negative)
[2019-05-18 10:12] LABS: Bacteria,Urine 1+ /HPF (Negative); Bilirubin,Urine NEG (Negative); Blood,Urine LG (Negative); Color,Urine Yellow (Yellow); Protein,Urine <15 mg/dL mg/dL (Negative); Urobilinogen,Urine < 2.0 mg/dL (<2.0)
[2019-05-18 10:13] LABS: RBC,Urine > 182.0 /HPF (0.0-6.0)
== END 2019-05-18 11:44 | disposition home or self-care (01) ==
LOC: ED 09:26
DX: N76.0 Acute vaginitis (principal); B96.89 Other specified bacterial agents as the cause of diseases classified elsewhere; Z88.2 Allergy status to sulfonamides; Z88.8 Allergy status to other drugs, medicaments and biological substances; Z79.899 Other long term (current) drug therapy; Z98.51 Tubal ligation status; Z90.89 Acquired absence of other organs
CPT/HCPCS: 81001; 81025; 87210; 87591; 99284

== ENCOUNTER 2019-07-22 06:10 | Emergency (ER) | payer SELFPAY ==
[2019-07-22 06:18] VITALS: BP 145/81
--- NOTE | 2019-07-22 09:16 | Emergency Department Report ---
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 Since that time she is complaining of progressively worsening pain to her shoulder with decreased range of motion primarily when attempting to lift over her head. She reports no numbness or tingling or bruising. Does have a headache and neck pain as well reports having a concussion history. She reports pain to the left buttocks region which is worse with palpation. MD Complaint: fall Loss of Consciousness: none Prolonged Down Time?: no Symptoms Prior to Fall: none Location - Extremities: Right: Shoulder Severity: mild, moderate Quality: dull Context: tripped/slipped (in freezer) - Related Data Previous Rx's Medication Instructions Recorded Last Taken Type Ibuprofen [Motrin 600 MG tab] 600 mg PO Q8H PRN #30 tablet 08/26/14 Unknown Rx Loratadine (Nf) [Claritin (Nf)] 10 mg PO DAILY #30 tablet 08/13/15 Unknown Rx ALBUTEROL Inhaler (OR & NICU) 2 puff IH QID PRN #1 inhalation 08/26/15 Unknown Rx [ProAir HFA Inhaler] Benzonatate [Tessalon Perles] 100 mg PO Q8HR #20 capsule 11/30/18 Unknown Rx Famotidine [Pepcid] 20 mg PO DAILY #30 tablet 11/30/18 Unknown Rx Ondansetron [Zofran Odt] 4 mg PO Q8HR PRN #10 tab.rapdis 11/30/18 Unknown Rx Prednisone [predniSONE 10 mg 10 mg PO .TAPER #1 tab.ds.pk 11/30/18 Unknown Rx (6-Day Pack, 21 Tabs)] guaiFENesin [Mucinex] 600 mg PO BID #20 tab.er.12h 11/30/18 Unknown Rx Fluconazole [Diflucan TAB] 150 mg PO ONCE #1 tablet 05/15/19 Unknown Rx Fluconazole [Diflucan TAB] 150 mg PO DAILY #2 tablet 05/18/19 Unknown Rx metroNIDAZOLE [Flagyl TAB] 500 mg PO Q12HR #14 tab 05/18/19 Unknown Rx Allergies Allergy/AdvReac Type Severity Reaction Status Date / Time sulfamethoxazole AdvReac Itching Verified 11/30/18 16:04 [From Bactrim] trimethoprim [From Bactrim] AdvReac Itching Verified 11/30/18 16:04 ED Review of Systems ROS: Stated complaint: FALL AT WORK/BUTTOCKS/BACK/R ARM PAIN Other details as noted in HPI Comment: All other systems reviewed and negative ED Past Medical Hx - Past Medical History Previous Medical History?: No Additional medical history: Frequent UTI, Heavy vaginal bleeding during menses, Bartholin cyst - Surgical History Past Surgical History?: Yes Additional Surgical History: tubal ligation,. tonsilectomy - Social History Smoking Status: Never Smoker Substance Use Type: None - Medications Home Medications: Home Medications Medication Instructions Recorded Confirmed Last Taken Type Ibuprofen [Motrin 600 MG tab] 600 mg PO Q8H PRN #30 tablet 08/26/14 Unknown Rx Loratadine (Nf) [Claritin (Nf)] 10 mg PO DAILY #30 tablet 08/13/15 Unknown Rx ALBUTEROL Inhaler (OR & NICU) 2 puff IH QID PRN #1 inhalation 08/26/15 Unknown Rx [ProAir HFA Inhaler] Benzonatate [Tessalon Perles] 100 mg PO Q8HR #20 capsule 11/30/18 Unknown Rx Famotidine [Pepcid] 20 mg PO DAILY #30 tablet 11/30/18 Unknown Rx Ondansetron [Zofran Odt] 4 mg PO Q8HR PRN #10 tab.rapdis 11/30/18 Unknown Rx Prednisone [predniSONE 10 mg 10 mg PO .TAPER #1 tab.ds.pk 11/30/18 Unknown Rx (6-Day Pack, 21 Tabs)] guaiFENesin [Mucinex] 600 mg PO BID #20 tab.er.12h 11/30/18 Unknown Rx Fluconazole [Diflucan TAB] 150 mg PO ONCE #1 tablet 05/15/19 Unknown Rx Fluconazole [Diflucan TAB] 150 mg PO DAILY #2 tablet 05/18/19 Unknown Rx metroNIDAZOLE [Flagyl TAB] 500 mg PO Q12HR #14 tab 05/18/19 Unknown Rx ED Physical Exam - General Limitations: No Limitations General appearance: alert, in no apparent distress - Head Head exam: Present: atraumatic, normocephalic - Eye Eye exam: Present: normal appearance - ENT ENT exam: Present: mucous membranes moist - Neck Neck exam: Present: normal inspection - Respiratory Respiratory exam: Present: normal lung sounds bilaterally. Absent: respiratory distress - Cardiovascular Cardiovascular Exam: Present: regular rate, normal rhythm. Absent: systolic murmur, diastolic murmur, rubs, gallop - GI/Abdominal GI/Abdominal exam: Present: soft, normal bowel sounds - Extremities Exam Extremities exam: Present: normal inspection, full ROM, normal capillary refill, other (pain to the right shoulder with range of motion positive Lewis's test p ositive Ferguson test pain with palpation to the right acromioclavicular joint. No sulcus sign noted. Strength is 45. Discomfort with overhead activity. ) - Back Exam Back exam: Present: normal inspection, other (there is some tenderness to the left buttock region full range of motion is noted for axial rotation of the spine full flexion and extension. full internal and external rotation of the hip and full abduction and adduction. Flexion and extension). Absent: tenderness, CVA tenderness (R), CVA tenderness (L), vertebral tenderness - Neurological Exam Neurological exam: Present: alert, oriented X3, CN II-XII intact, normal gait - Psychiatric Psychiatric exam: Present: normal affect, normal mood - Skin Skin exam: Present: warm, dry, intact, normal color. 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 Pain primarily to the right shoulder and also her left buttocks. Neurological symptoms with the exception of pain to the spine was more in the urgent or even a emergent suspicions. She did have considerable pain to the right shoulder so an x-ray was discussed.. The patient later refused the x-ray stating that she wanted to catch her her ride. I tried to advise her to move forward with the studies of which she refused patient was of sound judgment alert and oriented 3. She did understand the risk also stating this was likely work was,. I advised her on ice therapy in Tylenol and Motrin. Advised to return to the emergency department should she feel her condition is worsening and she is also advised to call if she is unsure of what to do. Critical care attestation.: If time is entered above; I have spent that time in minutes in the direct care of this critically ill patient, excluding procedure time. ED Disposition Clinical Impression: Hip pain, left, Shoulder pain Disposition: TO HOME OR SELFCARE Is pt being admited?: No Does the pt Need Aspirin: No Condition: Stable Instructions: Arthralgia (ED), Ice Pack Application (ED) Additional Instructions: Please take Tylenol and Motrin [id number] as needed for your pain and ice as according to this discharge packet guidelines. Follow-up which awoke. Her v ital for further evaluation and treatment of this slip and fall related condition Referrals: PRIMARY CARE, [Primary Care Provider] - 3-5 Days Forms: Work/School Release Form(ED)
== END 2019-07-22 09:36 | disposition home or self-care (01) ==
LOC: ED 06:10
DX: M25.511 Pain in right shoulder (principal); M25.552 Pain in left hip; Z98.51 Tubal ligation status; Z90.89 Acquired absence of other organs; Z79.899 Other long term (current) drug therapy; Z88.8 Allergy status to other drugs, medicaments and biological substances; W01.0XXA Fall on same level from slipping, tripping and stumbling without subsequent striking against object, initial encounter; Y93.89 Activity, other specified; Y92.89 Other specified places as the place of occurrence of the external cause; Y99.8 Other external cause status

== ENCOUNTER 2019-10-27 17:24 | Emergency (ER) | payer SELFPAY ==
[2019-10-27 17:52] VITALS: BP 153/86
--- NOTE | 2019-10-27 17:57 | Emergency Department Report ---
Chief Complaint: Upper Respiratory Infection Stated Complaint: SOB/SINUS/DRAINAGE Time Seen by Provider: 10/27/19 17:55 - HPI History of Present Illness: 43 yo presents with seasonal allergies. Finished amoxicillin and prednisone recently. recommended OTC treatment - Exam Vital Signs: Vital Signs 10/27/19 17:51 Temperature 98.3 F Pulse Rate 107 H Respiratory 18 Rate Blood Pressure 153/86 O2 Sat by Pulse 98 Oximetry MSE screening note: Focused history and physical exam performed. Due to findings the following was ordered: ED Disposition for MSE Clinical Impression: Encounter for medical screening examination Disposition: Z MED SCREENING EXAM-LEFT Is pt being admited?: No Does the pt Need Aspirin: No Condition: Stable Additional Instructions: Take Whit and Flonase Referrals: RAYNE GUTIERREZ MD [Staff Physician] - 3-5 Days
== END 2019-10-27 18:21 | disposition left against medical advice (07) ==
LOC: ED 17:24
DX: R05 Cough (principal); R09.89 Other specified symptoms and signs involving the circulatory and respiratory systems; Z53.21 Procedure and treatment not carried out due to patient leaving prior to being seen by health care provider

== ENCOUNTER 2020-10-23 22:39 | Emergency (ER) | payer SELFPAY ==
[2020-10-23 23:07] VITALS: BP 156/74
--- NOTE | 2020-10-24 01:06 | Emergency Department Report ---
ED Extremity Problem HPI - General Chief complaint: Extremity Injury, Lower Stated complaint: BILATERAL SWOLLEN FEET Source: patient Mode of arrival: Ambulatory Limitations: No Limitations - History of Present Illness Initial comments: Patient is a 44-year-old white female with no past medical history presents to the ED with complaint of acute onset persistent bilateral foot pain and swelling with erythematous maculopapular rash on dorsal right feet and right great toe and right index finger for the last 4 days. Patient states that the pain is worsened in the last 12 hours. Patient states that she is a habitual nail biter and suspects that the right index finger erythematous rash may be from her biting her nails. Patient denies fever, chills, nausea, vomiting, dizziness, chest pain, shortness of breath, traumatic injury, numbness and tingling or weakness of upper and lower extremities bilaterally, change in vision or fall. MD Complaint: extremity pain (bilateral foot pain, mildly erythematous rash on right index finger), joint swelling (bilateral dorsal foot) -: Sudden, days(s) (4) Location: lower extremity (bilateral dorsal foot), toe (Right great toe swelling erythematous maculopapular rash), other (Distal right index finger swollen erythematous maculopapular rash) History of Same: No -: Yes arthralgia, No fever, No associated dyspnea, No associated chest pain Severity scale (0 -10): 4 Quality: aching, sharp Consistency: constant Improves with: nothing Worsens with: weight bearing, palpation Associated Symptoms: denies other symptoms, arthralgias, rash (Mild erythematous maculopapular rash on dorsal bilateral dorsal feet and right index finger). denies: chest pain, shortness of breath, fever, myalgias - Related Data Previous Rx's Medication Instructions Recorded Last Taken Type Ibuprofen [Motrin 600 MG tab] 600 mg PO Q8H PRN #30 tablet 08/26/14 Unknown Rx Loratadine (Nf) [Claritin (Nf)] 10 mg PO DAILY #30 tablet 08/13/15 Unknown Rx Albuterol Mdi (or & Nicu Only) 2 puff IH QID PRN #1 inhalation 08/26/15 Unknown Rx [ProAir HFA Inhaler] Benzonatate [Tessalon Perles] 100 mg PO Q8HR #20 capsule 11/30/18 Unknown Rx Famotidine [Pepcid] 20 mg PO DAILY #30 tablet 11/30/18 Unknown Rx Ondansetron [Zofran Odt] 4 mg PO Q8HR PRN #10 tab.rapdis 11/30/18 Unknown Rx Prednisone [predniSONE 10 mg 10 mg PO .TAPER #1 tab.ds.pk 11/30/18 Unknown Rx (6-Day Pack, 21 Tabs)] guaiFENesin [Mucinex] 600 mg PO BID #20 tab.er.12h 11/30/18 Unknown Rx Fluconazole (Nf) [Diflucan TAB] 150 mg PO ONCE #1 tablet 05/15/19 Unknown Rx Fluconazole (Nf) [Diflucan TAB] 150 mg PO DAILY #2 tablet 05/18/19 Unknown Rx metroNIDAZOLE [Flagyl TAB] 500 mg PO Q12HR #14 tab 05/18/19 Unknown Rx Amoxicillin [Amoxicillin TAB] 875 mg PO BID 10 Days #20 tablet 10/22/19 Unknown Rx methylPREDNISolone [Medrol 4MG 4 mg PO DAILY #1 pack 10/22/19 Unknown Rx DOSEPAK (21 tabs)] Doxycycline Hyclate 100 mg PO Q12H #20 tablet.dr 10/24/20 Unknown Rx Ibuprofen [Motrin] 600 mg PO Q8H PRN #30 tablet 10/24/20 Unknown Rx Allergies Allergy/AdvReac Type Severity Reaction Status Date / Time sulfamethoxazole AdvReac Itching Verified 04/21/20 11:50 [From Bactrim] trimethoprim [From Bactrim] AdvReac Itching Verified 04/21/20 11:50 ED Review of Systems ROS: Stated complaint: BILATERAL SWOLLEN FEET Other details as noted in HPI Constitutional: denies: chills, fever Eyes: denies: eye pain, eye discharge, vision change ENT: denies: ear pain, throat pain Respiratory: denies: cough, shortness of breath, wheezing Cardiovascular: denies: chest pain, palpitations Endocrine: no symptoms reported Gastrointestinal: denies: abdominal pain, nausea, diarrhea Genitourinary: denies: urgency, dysuria, discharge Musculoskeletal: joint swelling, arthralgia (Bilateral foot pain due to erythematous maculopapular rash on dorsal right foot and right great toe; right index finger pain due to erythematous maculopapular rash on distal right index finger), myalgia. denies: back pain Skin: rash (Erythematous maculopapular nonfluctuant rash on dorsal right index finger and dorsal bilateral foot and right great toe), change in color. denies: lesions Neurological: denies: headache, weakness, paresthesias Psychiatric: denies: anxiety, depression Hematological/Lymphatic: denies: easy bleeding, easy bruising ED Past Medical Hx - Past Medical History Additional medical history: Frequent UTI, Heavy vaginal bleeding during menses, Bartholin cyst - Surgical History Additional Surgical History: tubal ligation,. tonsilectomy - Social History Smoking Status: Never Smoker Substance Use Type: Cocaine - Medications Home Medications: Home Medications Medication Instructions Recorded Confirmed Last Taken Type Ibuprofen [Motrin 600 MG tab] 600 mg PO Q8H PRN #30 tablet 08/26/14 Unknown Rx Loratadine (Nf) [Claritin (Nf)] 10 mg PO DAILY #30 tablet 08/13/15 Unknown Rx Albuterol Mdi (or & Nicu Only) 2 puff IH QID PRN #1 inhalation 08/26/15 Unknown Rx [ProAir HFA Inhaler] Benzonatate [Tessalon Perles] 100 mg PO Q8HR #20 capsule 11/30/18 Unknown Rx Famotidine [Pepcid] 20 mg PO DAILY #30 tablet 11/30/18 Unknown Rx Ondansetron [Zofran Odt] 4 mg PO Q8HR PRN #10 tab.rapdis 11/30/18 Unknown Rx Prednisone [predniSONE 10 mg 10 mg PO .TAPER #1 tab.ds.pk 11/30/18 Unknown Rx (6-Day Pack, 21 Tabs)] guaiFENesin [Mucinex] 600 mg PO BID #20 tab.er.12h 11/30/18 Unknown Rx Fluconazole (Nf) [Diflucan TAB] 150 mg PO ONCE #1 tablet 05/15/19 Unknown Rx Fluconazole (Nf) [Diflucan TAB] 150 mg PO DAILY #2 tablet 05/18/19 Unknown Rx metroNIDAZOLE [Flagyl TAB] 500 mg PO Q12HR #14 tab 05/18/19 Unknown Rx Amoxicillin [Amoxicillin TAB] 875 mg PO BID 10 Days #20 tablet 10/22/19 Unknown Rx methylPREDNISolone [Medrol 4MG 4 mg PO DAILY #1 pack 10/22/19 Unknown Rx DOSEPAK (21 tabs)] Doxycycline Hyclate 100 mg PO Q12H #20 tablet. 10/24/20 Unknown Rx Ibuprofen [Motrin] 600 mg PO Q8H PRN #30 tablet 10/24/20 Unknown Rx ED Physical Exam - General Limitations: No Limitations General appearance: alert, in no apparent distress - Head Head exam: Present: atraumatic, normocephalic, normal inspection - Eye Eye exam: Present: normal appearance, PERRL, EOMI Pupils: Present: normal accommodation - ENT ENT exam: Present: normal exam, normal orophraynx, mucous membranes moist, TM's normal bilaterally, normal external ear exam - Neck Neck exam: Present: normal inspection, full ROM - Respiratory Respiratory exam: Present: normal lung sounds bilaterally. Absent: respiratory distress, wheezes, rales, stridor, chest wall tenderness, accessory muscle use, decreased breath sounds, prolonged expiratory - Cardiovascular Cardiovascular Exam: Present: normal rhythm, tachycardia, normal heart sounds. Absent: systolic murmur, diastolic murmur, rubs, gallop - GI/Abdominal GI/Abdominal exam: Present: soft, normal bowel sounds. Absent: tenderness, guarding, rebound, hyperactive bowel sounds, hypoactive bowel sounds, organomegaly - Extremities Exam Extremities exam: Present: normal inspection, full ROM, tenderness (Palpable mild dorsal bilateral foot tenderness and right index finger due to erythematous maculopapular nonfluctuant rash), normal capillary refill, joint swelling. Absent: pedal edema, calf tenderness - Back Exam Back exam: Present: normal inspection, full ROM. Absent: tenderness, CVA tenderness (R), CVA tenderness (L), muscle spasm, paraspinal tenderness, vertebral tenderness - Neurological Exam Neurological exam: Present: alert, oriented X3, CN II-XII intact, normal gait, reflexes normal - Psychiatric Psychiatric exam: Present: normal affect, anxious - Skin Skin exam: Present: warm, dry, intact, rash (Mild erythematous maculopapular rash on dorsal bilateral feet and right great toe as well as on distal right index finger with mild tenderness and swelling), erythema ED Course Vital Signs 10/23/20 23:04 Temperature 98.2 F Pulse Rate 101 H Respiratory 18 Rate Blood Pressure 156/74 O2 Sat by Pulse 97 Oximetry ED Medical Decision Making - Medical Decision Making This is a 44-year-old white female with no past medical history presents to the ED with complaint of acute onset persistent bilateral foot pain and swelling with erythematous maculopapular rash on dorsal right feet and right great toe and right index finger for the last 4 days. Patient states that the pain is worsened in the last 12 hours. Patient states that she is a habitual nail biter and suspects that the right index finger erythematous rash may be from her biting her nails. In the ED, patient is alert and oriented x3 and is not in any distress but appears anxious and tachycardic but afebrile in triage. Based on the history and physical exam findings, patient symptoms are likely due to mild cellulitis of bilateral dorsal feet and right index finger paronychia. The patient was discharged home on pain medications and antibiotics and advised follow-up with her primary care physician in 7 to 10 days for reevaluation. Patient is advised return to the ED immediately if symptoms get worse. - Differential Diagnosis Paronychia index finger; Cellulitis of foot; cellulitis of index finger Critical care attestation.: If time is entered above; I have spent that time in minutes in the direct care of this critically ill patient, excluding procedure time. ED Disposition Clinical Impression: Cellulitis of great toe of right foot, Paronychia of right index finger Muscle strain of foot Qualifiers: Encounter type: initial encounter Laterality: unspecified laterality Qualified Code(s): S96.919A - Strain of unspecified muscle and tendon at ankle and foot level, unspecified foot, initial encounter Disposition: TO HOME OR SELFCARE Is pt being admited?: No Does the pt Need Aspirin: No Condition: Stable Instructions: Muscle Strain, [id number], Cellulitis, Adult, [id number], Paronychia, [id number] Additional Instructions: Take medication with food, drink plenty of fluids and follow-up with your primary care physician in 7 to 10 days for reevaluation. Return to the ED immediately if symptoms get worse. Prescriptions: Doxycycline Hyclate 100 mg PO Q12H #20 tablet. Ibuprofen [Motrin] 600 mg PO Q8H PRN #30 tablet PRN Reason: Pain Referrals: [facility] [Provider Group] - 7-10 days Time of Disposition: 01:10 Print Language: AMHARIC
== END 2020-10-24 01:20 | disposition home or self-care (01) ==
LOC: ED 22:39
DX: S96.911A Strain of unspecified muscle and tendon at ankle and foot level, right foot, initial encounter (principal); L03.011 Cellulitis of right finger; L03.031 Cellulitis of right toe; F14.90 Cocaine use, unspecified, uncomplicated; Z88.2 Allergy status to sulfonamides; Z88.8 Allergy status to other drugs, medicaments and biological substances; Z79.899 Other long term (current) drug therapy; Z98.51 Tubal ligation status; Z90.49 Acquired absence of other specified parts of digestive tract; X58.XXXA Exposure to other specified factors, initial encounter; Y93.89 Activity, other specified; Y92.89 Other specified places as the place of occurrence of the external cause; Y99.8 Other external cause status
CPT/HCPCS: 99282